=== PATIENT | female | born 1960 | race Caucasian/White ===

== ENCOUNTER 2020-10-04 10:00 | Inpatient (IN) | payer OTHER ==
[~2020-10-04 10:00] MED LIST: ATENOLOL25 GM; MICARDIS20 MG; SYNTHROID50 MCG; VERTICALM25 MG PO
== END 2020-10-13 18:38 | disposition home or self-care (01) | DRG 331 ==
LOC: O/R 10-10 06:50 → SURH 10-10 06:50
PROVIDERS: ADMIT Colon & Rectal Surgery; ATTEND Colon & Rectal Surgery
PROC: 0DBN4ZZ Excision of Sigmoid Colon, Percutaneous Endoscopic Approach (ICD-10-PCS; 2020-10-10)
PROC: 0DJD8ZZ Inspection of Lower Intestinal Tract, Via Natural or Artificial Opening Endoscopic (ICD-10-PCS; 2020-10-10)
PROC: 0DTP4ZZ Resection of Rectum, Percutaneous Endoscopic Approach (ICD-10-PCS; principal; 2020-10-10 10:00)
DX: K57.30 Diverticulosis of large intestine without perforation or abscess without bleeding (principal); E03.9 Hypothyroidism, unspecified; I13.10 Hypertensive heart and chronic kidney disease without heart failure, with stage 1 through stage 4 chronic kidney disease, or unspecified chronic kidney disease; N18.2 Chronic kidney disease, stage 2 (mild); E66.8 Other obesity; Z68.32 Body mass index [BMI] 32.0-32.9, adult

== ENCOUNTER 2021-01-02 12:26 | Outpatient (CLI) | payer OTHER | END 2021-01-02 12:48 | disposition HB | LOC: SONOGRAMA 12:26 → TOM 12:26 | PROVIDERS: ATTEND Colon & Rectal Surgery | DX: Q61.02 Congenital multiple renal cysts (principal); R16.0 Hepatomegaly, not elsewhere classified; K57.32 Diverticulitis of large intestine without perforation or abscess without bleeding ==

== ENCOUNTER 2021-04-20 13:55 | Emergency (ER) | payer OTHER ==
[~2021-04-20] VITALS: Ht 167.6 cm; Wt 86.2 kg
== END 2021-04-20 19:39 | disposition home or self-care (01) ==
LOC: ER 13:55
DX: K62.5 Hemorrhage of anus and rectum (principal)

== ENCOUNTER 2021-06-22 06:37 | Day surgery (SDC) | payer OTHER | END 2021-06-22 12:00 | disposition home or self-care (01) | LOC: AMB-ENDOS 06:37 | PROVIDERS: ATTEND Colon & Rectal Surgery | DX: K57.32 Diverticulitis of large intestine without perforation or abscess without bleeding (principal); K64.0 First degree hemorrhoids; Z20.822 Contact with and (suspected) exposure to COVID-19 ==